=== PATIENT | male | born 1995 | race Two or more races ===

== ENCOUNTER 2016-09-17 05:16 | Emergency (ER) | payer MEDICAID, OTHER ==
[~2016-09-17] VITALS: Ht 172.7 cm; Wt 85.3 kg
[2016-09-17 05:43] VITALS: BP 136/73
[2016-09-17 06:03] LABS: Basophils # (auto) 0 uL; Basophils % (auto) 0.5 % (0.0-2.0); Eosinophils # (auto) 0.2 uL; Eosinophils % (auto) 2.6 % (0.0-7.0); Hemoglobin 16.1 g/dL (13.5-17.5); Lymphocytes # (auto) 2.1 uL; Lymphocytes % (auto) 31.2 % (10.0-50.0); Mean Corpuscular Hemoglobin 29.9 pg (28.0-32.0); Mean Corpuscular Hgb Conc. 33.5 g/dL (32.0-36.0); Mean Corpuscular Volume 89.3 fL (80.0-100.0); Mean Platelet Volume 9.6 fL (7.4-10.4); Monocytes # (auto) 0.7 uL; Monocytes % (auto) 11.1 % (0.0-12.0); Neutrophils # (auto) 3.6 uL; Neutrophils % (auto) 54.6 % (37.0-80.0); Platelet Count (auto) 201 10^3/uL (140-450); Red Cell Distribution Width 13.2 % (11.6-16.0); White Blood Cell 6.7 10^3/uL (4.4-10.8)
[2016-09-17 06:23] LABS: BUN/Creatinine Ratio 18.7; Calcium 9.9 mg/dL (8.5-10.1)
[2016-09-17 06:26] LABS: Bilirubin, Total 0.6 mg/dL (0.2-1.0); Total Protein 8.2 g/dL (6.4-8.2)
== END 2016-09-17 07:44 | disposition home or self-care (01) ==
LOC: ER 05:16
DX: R11.2 Nausea with vomiting, unspecified (principal)
CPT/HCPCS: 36415; 80053; 85025

== ENCOUNTER 2023-04-01 06:10 | Emergency (ER) | payer SELFPAY ==
[~2023-04-01] VITALS: Ht 165.1 cm; Wt 91.1 kg
[2023-04-01 07:39] VITALS: BP 119/80; PULSE 85; RESP 16; TEMP 97.6; O2SAT 98
== END 2023-04-01 08:01 | disposition home or self-care (01) ==
LOC: ER 06:10
DX: H61.22 Impacted cerumen, left ear (principal)
CPT/HCPCS: 69209